=== PATIENT | female | born 1950 | race Caucasian/White ===

== ENCOUNTER 2017-11-15 01:44 | Emergency (ER) | payer OTHER ==
[~2017-11-15] VITALS: Ht 154.9 cm; Wt 22.7 kg
[2017-11-15 01:50] VITALS: BP_SYST 171
--- NOTE | 2017-11-15 01:50 | NUR ---
Patient to ER bed 4 to gown for evaluation. Side rails up. Report given to VINNY ROMERO.
--- NOTE | 2017-11-15 01:55 | NUR ---
Pt brought in by friend in stable condition. Pt was wheelchaired to bed 4. Pt c/o sudden onset of dizziness while walking into the house. Pt stated that dizziness began 1 hr prior to ER arrival. Pt stated that it felt like an earthquake. -n/v -sob -cp. Pt present very anxious and is very concerned about her elevated BP and potential heart attack. Pt stated that she was very concerned about her heart because she has a family HX of OR. Placed pt on bus driver/monitor and will continue to monitor.
[2017-11-15] MEDS ORDERED: NACL 0.9% 1,000 ML IV ONE (02:32)
--- NOTE | 2017-11-15 02:34 | NUR ---
ER at bedside examining patient.
[2017-11-15] MEDS ORDERED: DIPHENHYDRAMINE INJ 50 MG/ML VIAL IVP ONE (02:45)
[2017-11-15] MEDS ORDERED: PROCHLORPERAZINE EDISYLATE 10 MG/2 ML VIAL IVP ONE (02:45)
[2017-11-15 03:21] LABS: BILIRUBIN,URINE NEGATIVE (NEGATIVE); BLOOD, URINE 2+ (NEGATIVE); CLARITY/URINE CLEAR (CLEAR); COLOR,URINE YELLOW (YELLOW); GLUCOSE,URINE NEGATIVE (NEGATIVE); KETONES,URINE NEGATIVE (NEGATIVE); LEUKOCYTE ESTERASE ,URINE NEGATIVE (NEGATIVE); NITRITE, URINE NEGATIVE (NEGATIVE); PH,URINE 5.5 (5.0-8.0); PROTEIN URINE NEGATIVE (NEGATIVE); UROBILINOGEN,URINE 0.2 (0.2-1.0)
[2017-11-15 03:34] LABS: BASOPHILS # (AUTO) 0.1 K/uL (0.0-0.2); BASOPHILS % (AUTO) 1.3 % (0.0-2.0); EOSINOPHILS # (AUTO) 0.1 K/uL (0.0-0.4); EOSINOPHILS % (AUTO) 2.3 % (0.0-4.0); HEMATOCRIT 41.2 % (36-48); HEMOGLOBIN 13.3 g/dL (12.0-16.0); LYMPHOCYTES # (AUTO) 1.8 K/uL (1.0-5.5); LYMPHOCYTES % (AUTO) 32.1 % (20.5-51.5); MEAN CORPUSCULAR HEMOGLOBIN 27 pg (27-31); MEAN CORPUSCULAR HGB CONC 32 % (32-36); MEAN CORPUSCULAR VOLUME 84 fL (79.0-98.0); MONOCYTES # (AUTO) 0.4 K/uL (0.0-1.0); MONOCYTES % (AUTO) 7.5 % (1.7-9.3); NEUTROPHILS # (AUTO) 3.2 K/uL (1.8-7.7); NEUTROPHILS % (AUTO) 56.8 % (40.0-70.0); PLATELET COUNT (AUTO) 248 K/uL (130-430); RED BLOOD CELL COUNT(AUTO) 4.92 MIL/uL (4.2-6.2); RED CELL DISTRIBUTION WIDTH 13.1 % (9.0-15.0); WHITE BLOOD COUNT (AUTO) 5.6 K/uL (4.8-10.8)
[2017-11-15 03:44] LABS: CALCIUM 9.3 mg/dL (8.4-11.0); CREATININE 1.17 mg/dL (0.55-1.30); POTASSIUM 4.1 mmol/L (3.5-5.1)
[2017-11-15 03:45] LABS: BACTERIA,URINE FEW /HPF (None Seen); HYALINE CASTS, URINE 0-10 /LPF (None Seen); WBC,URINE 0-3 /HPF (0-3)
[2017-11-15 03:49] LABS: ALBUMIN 4.2 g/dL (3.4-4.8); TOTAL BILIRUBIN 0.2 mg/dL (0.0-1.0)
[2017-11-15 04:53] VITALS: BP_SYST 124
--- NOTE | 2017-11-15 04:53 | NUR ---
Patient given written and verbal discharge instructions and verbalizes understanding. ER MD DYER discussed with patient the results and treatment provided. Patient in stable condition. ID arm band removed. IV catheter removed intact and dressing applied, no active bleeding. Rx of ANTIVERT given. Patient educated on pain management and to follow up with PMD. Pain Scale 0/10. Opportunity for questions provided and answered. Medication side effect fact sheet provided.
== END 2017-11-15 04:53 | disposition home or self-care (01) ==
LOC: SED 01:44
DX: R42 Dizziness and giddiness (principal); R68.2 Dry mouth, unspecified
CPT/HCPCS: 36415; 70450; 80053; 81000; 85025; 93005; 96374; 96375; 99285; J0780; J1200; J7030